=== PATIENT | male | born 1990 | race Caucasian/White ===

== ENCOUNTER 2022-05-01 08:30 | Emergency (ER) | payer MEDICAID, SELFPAY ==
[2022-05-01] VITALS (32 sets, daily range): BP systolic 130–167; BP diastolic 89–108; PULSE 84–99; RESP 18; TEMP 37.2; O2SAT 93–97; BMI 32.5
--- NOTE | 2022-05-01 09:22 | CRLHL7_ITS ---
For Patients: As a result of the Century Cures Act, medical imaging exams and procedure reports are released immediately into your electronic medical record. You may view this report before your referring provider. If you have questions, please contact your health care provider. INDICATION: Chest tightness. TECHNIQUE: Chest 2 views. COMPARISON: None. FINDINGS: No focal consolidation, pleural effusion, or pneumothorax. Normal heart size and pulmonary vascularity. The bones are unremarkable. IMPRESSION: No acute cardiopulmonary findings. Dictated by Johanna Young MD @ 05/01/2022 10:11:26 AM (Electronically Signed)
--- NOTE | 2022-05-01 09:22 | ED.GENADULT ---
HPI - General Adult General Chief complaint: Chest Pain Stated complaint: Chest tightness History of Present Illness HPI narrative: This 32-year-old male comes in reporting some chest tightness over the past couple days. He states that he had a subjective fever a couple days ago. He states that he felt warm but did not measure his temperature. He did take a COVID test which was negative. He does not have any report of cough for upper respiratory symptoms. He is otherwise in good health. He did not report any nausea, vomiting, lightheadedness, shortness of breath, or diaphoresis. He has good exercise tolerance. He does not have any cardiac risk factors. Related Data Home Medications Medication Instructions Recorded Confirmed No Known Home Medications 05/01/22 05/01/22 Allergies Allergy/AdvReac Type Severity Reaction Status Date / Time No Known Drug Allergies Allergy Verified 05/01/22 08:57 Review of Systems Status of ROS: Reports: 10 or more systems reviewed and unremarkable except as noted in History and below Narrative: Constitutional: No fevers, no weight gain or loss. Eyes: No discharge. No vision changes. HENT: No congestion, no sore throat, no ear pain. Cardiovascular: No palpitations. He reports some tightness across his chest but does not characterize it specifically as pain. Respiratory: No shortness of breath, no wheezes, no cough. Gastrointestinal: No abdominal pain, no vomiting, no diarrhea. Genitourinary: No dysuria, no hematuria. Musculoskeletal: Normal range of motion. Skin: No rashes, no pruritis. Neurological: No dizziness, weakness, sensory change, speech change. Endo/Heme/Allergies: No bruising or bleeding. No polydipsia. Pysch: no suicidality, no anxiety, no insomnia. All other systems reviewed and are negative. PFSH PFS Social History Smoking Status: Unknown if ever smoked How often do you have a drink containing alcohol: 2-4 times a month How often do you have six or more drinks on one occasion: Monthly AUDIT-C Alcohol total score: 4 Non-prescribed substance use: denies use service: No Exam Narrative: Exam Narrative: Constitutional: Well-developed, well-nourished, no acute distress. HEENT: Normocephalic, atraumatic. Neck: Normal range of motion. Nontender. Supple. Heart: Regular. No murmurs. Normal rate. Intact distal pulses. Lungs: Clear to auscultation. No wheezes, rhonchi, or rales. Abdomen: Normal bowel sounds. Nontender. No rebound tenderness. Genitalia: Deferred. Back: No midline tenderness. Normal range of motion. Extremities: Normal range of motion. No injury. Skin: Intact. No rash. Warm. No erythema or pallor. Neurologic: No altered sensation. No weakness. Alert and oriented. Psychiatric: No suicidality. No anxiety or depression. No insomnia. Nursing notes and vitals signs are reviewed. Const: Vital Signs, click to edit/add: Vital Signs - 24 hr 05/01/22 08:52 05/01/22 10:50 05/01/22 11:00 Temperature 98.9 F Pulse Rate 87 84 Pulse Rate [Right Pulse Oximeter] 91 Respiratory Rate 18 Blood Pressure Blood Pressure [Ri ght Upper Arm] 147/97 H Pulse Oximetry 97 96 97 Oxygen Delivery Me thod Room Air 05/01/22 11:01 05/01/22 11:30 05/01/22 12:00 Temperature Pulse Rate 99 92 94 Pulse Rate [Right Pulse Oximeter] Respiratory Rate Blood Pressure 139/97 H Blood Pressure [Ri ght Upper Arm] Pulse Oximetry 96 97 97 Oxygen Delivery Me thod 05/01/22 12:02 05/01/22 12:30 05/01/22 12:32 Temperature Pulse Rate 91 89 90 Pulse Rate [Right Pulse Oximeter] Respiratory Rate Blood Pressure 167/106 H 148/92 H Blood Pressure [Ri ght Upper Arm] Pulse Oximetry 97 95 96 Oxygen Delivery Me thod 05/01/22 12:34 05/01/22 13:00 05/01/22 13:02 Temperature Pulse Rate 94 86 88 Pulse Rate [Right Pulse Oximeter] Respiratory Rate Blood Pressure 145/97 H Blood Pressure [Ri ght Upper Arm] Pulse Oximetry 94 95 95 Oxygen Delivery Me thod 05/01/22 13:03 05/01/22 13:30 05/01/22 13:31 Temperature Pulse Rate 85 97 95 Pulse Rate [Right Pulse Oximeter] Respiratory Rate Blood Pressure 142/90 H Blood Pressure [Ri ght Upper Arm] Pulse Oximetry 96 96 96 Oxygen Delivery Me thod 05/01/22 14:00 05/01/22 14:02 05/01/22 14:03 Temperature Pulse Rate 84 85 88 Pulse Rate [Right Pulse Oximeter] Respiratory Rate Blood Pressure 133/93 H Blood Pressure [Ri ght Upper Arm] Pulse Oximetry 96 97 97 Oxygen Delivery Me thod 05/01/22 14:30 05/01/22 14:32 05/01/22 15:00 Temperature Pulse Rate 91 95 84 Pulse Rate [Right Pulse Oximeter] Respiratory Rate Blood Pressure 142/105 H Blood Pressure [Ri ght Upper Arm] Pulse Oximetry 94 97 95 Oxygen Delivery Me thod 05/01/22 15:01 05/01/22 15:30 05/01/22 15:31 Temperature Pulse Rate 86 91 93 Pulse Rate [Right Pulse Oximeter] Respiratory Rate Blood Pressure 137/90 H 147/108 H Blood Pressure [Ri ght Upper Arm] Pulse Oximetry 95 96 95 Oxygen Delivery Me thod 05/01/22 16:01 05/01/22 16:02 05/01/22 16:30 Temperature Pulse Rate 88 91 87 Pulse Rate [Right Pulse Oximeter] Respiratory Rate Blood Pressure 130/89 Blood Pressure [Ri ght Upper Arm] Pulse Oximetry 95 97 97 Oxygen Delivery Me thod 05/01/22 16:32 05/01/22 17:00 05/01/22 17:05 Temperature Pulse Rate 85 90 93 Pulse Rate [Right Pulse Oximeter] Respiratory Rate Blood Pressure 151/102 H Blood Pressure [Ri ght Upper Arm] Pulse Oximetry 94 95 93 Oxygen Delivery Me thod 05/01/22 17:06 05/01/22 17:30 Temperature Pulse Rate 92 91 Pulse Rate [Right Pulse Oximeter] Respiratory Rate Blood Pressure Blood Pressure [Ri ght Upper Arm] Pulse Oximetry 95 94 Oxygen Delivery Me thod Course Vital Signs Vital signs: Initial Vital Signs Temperature 98.9 F 05/01/22 08:52 Temperature Source Temporal Artery Scan 05/01/22 08:52 Pulse Rate 91 05/01/22 08:52 Pulse Rhythm 05/01/22 08:52 Respiratory Rate 18 05/01/22 08:52 Blood Pressure 147/97 H 05/01/22 08:52 Blood Pressure Mean 113 05/01/22 08:52 Blood Pressure Position Sitting 05/01/22 08:52 Pulse Oximetry 97 05/01/22 08:52 Oxygen Delivery Method 05/01/22 08:52 Vital Signs Temperature 98.9 F 05/01/22 08:52 Pulse Rate 91 05/01/22 08:52 Respiratory Rate 18 05/01/22 08:52 Blood Pressure 147/97 H 05/01/22 08:52 Pulse Oximetry 97 05/01/22 08:52 Oxygen Delivery Method 05/01/22 08:52 Temperature 98.9 F 05/01/22 08:52 Pulse Rate 91 05/01/22 17:30 Respiratory Rate 18 05/01/22 08:52 Blood Pressure 151/102 H 05/01/22 16:32 Pulse Oximetry 94 05/01/22 17:30 Oxygen Delivery Method 05/01/22 08:52 Medical Decision Making MDM Narrative Medical decision making narrative: This patient comes in reporting some chest tightness and felt like he had a fever a few days ago. He did also have some diaphoresis. Currently he is not having any symptoms. EKG shows normal sinus rhythm without any ST or T-wave abnormalities. I did check x-ray of his chest which returns normal. Additionally his labs are acquired and these returned normal except for a notable elevation in troponin point of care. A lab troponin I was then ordered which returns at 3.05. A few hours later a repeat troponin returned at 3.5. This patient does not have any cardiac risk factors and does not use any street drugs or other medications. He normally has good exercise tolerance. There is suspicion for a acute coronary syndrome, myocarditis, endocarditis, or pericarditis. He did receive 4 baby aspirin. I did add labs including sed rate and C reactive protein. This sed rate returns normal at 13 and this C reactive protein is elevated a bit at 1.8. His white count is in normal range. I spoke with the facepiece line supervisor expansion joint finisher at [facility], Dr. Sharp, who was also perplexed along with me regarding this elevated troponin finding. The patient was able to get an echocardiogram here in this returned with no notable findings of abnormality. Dr. Sharp also reviewed these images. The patient was started on heparin ACS protocol. He continues to have no symptoms and is maintaining normal vital signs. Arrangements are made for transfer to [facility] after many hours of waiting here in the emergency department. Dr. Preston is the accepting physician there. Time spent in critical care of this patient was 45 minutes. Lab Data Labs: Lab Results 05/01/22 05/01/22 05/01/22 Range/Units 09:34 09:34 09:34 WBC 4.54 (4.50-11.00) K/uL RBC 6.07 H (4.30-5.90) m/uL Hgb 15.4 (13.5-17.5) gm/dL Hct 47.4 (37.0-53.0) % MCV 78 L (80-100) fL MCH 25 L (26-34) pg MCHC 33 (32-36) gm/dL RDW Coeff of Amilcar 13.3 (11.5-15.5) % Plt Count 146 (140-440) K/uL Neut % (Auto) 45.4 (42.0-72.0) % Lymph % (Auto) 31.5 (20-44) % [place] % (Auto) 21.1 H (0.0-11.0) % Eos % (Auto) 1.1 (0.0-7.0) % Baso % (Auto) 0.7 (0.0-3.0) % Neut # (Auto) 2.06 (1.7-7.0) K/uL Lymph # (Auto) 1.43 (0.90-2.90) K/uL [place] # (Auto) 1.00 H (0.00-0.90) K/UL Eos # (Auto) 0.05 (0.00-0.50) K/uL Baso # (Auto) 0.03 (0.00-0.30) K/uL Abs Immat Gran (auto) 0.01 (0.00-0.30) K/uL Imm/Tot Granulo (auto) 0.2 % ESR (2-15) mm/hr INR (0.91-1.10) APTT (23-33) Seconds Sodium 141 (135-149) mmol/L Potassium 3.9 (3.6-5.1) mmol/L Chloride 104 (96-114) mmol/L Carbon Dioxide 28 (20-32) mmol/L BUN 12 (5-24) mg/dL Creatinine 0.8 (0.5-1.5) mg/dL Estimated Creat Clear 142.81 Estimated GFR 119 ml/min Glucose 99 (60-115) mg/dL Calcium 9.5 (8.4-10.6) mg/dL Total Bilirubin (0.1-1.5) mg/dL Direct Bilirubin (0.0-0.5) mg/dL AST (12-35) U/L ALT (4-50) U/L Alkaline Phosphatase (40-150) U/L Troponin I (0.01-0.04) ng/mL C-Reactive Protein (0.5-1.0) mg/dL Total Protein (6.0-8.3) g/dL Albumin (3.3-5.0) g/dL SARS-CoV-2 (PCR) (Negative) Influenza Type A (PCR) (Negative) Influenza Type B (PCR) (Negative) RSV (PCR) (Negative) POC Troponin I 2.47 H (0.01-0.04) ng/ml 05/01/22 05/01/22 05/01/22 Range/Units 09:34 09:34 09:34 WBC (4.50-11.00) K/uL RBC (4.30-5.90) m/uL Hgb (13.5-17.5) gm/dL Hct (37.0-53.0) % MCV (80-100) fL MCH (26-34) pg MCHC (32-36) gm/dL RDW Coeff of Amilcar (11.5-15.5) % Plt Count (140-440) K/uL Neut % (Auto) (42.0-72.0) % Lymph % (Auto) (20-44) % [place] % (Auto) (0.0-11.0) % Eos % (Auto) (0.0-7.0) % Baso % (Auto) (0.0-3.0) % Neut # (Auto) (1.7-7.0) K/uL Lymph # (Auto) (0.90-2.90) K/uL [place] # (Auto) (0.00-0.90) K/UL Eos # (Auto) (0.00-0.50) K/uL Baso # (Auto) (0.00-0.30) K/uL Abs Immat Gran (auto) (0.00-0.30) K/uL Imm/Tot Granulo (auto) % ESR 13 (2-15) mm/hr INR (0.91-1.10) APTT (23-33) Seconds Sodium (135-149) mmol/L Potassium (3.6-5.1) mmol/L Chloride (96-114) mmol/L Carbon Dioxide (20-32) mmol/L BUN (5-24) mg/dL Creatinine (0.5-1.5) mg/dL Estimated Creat Clear Estimated GFR ml/min Glucose (60-115) mg/dL Calcium (8.4-10.6) mg/dL Total Bilirubin 0.6 (0.1-1.5) mg/dL Direct Bilirubin 0.2 (0.0-0.5) mg/dL AST 54 H (12-35) U/L ALT 52 H (4-50) U/L Alkaline Phosphatase 72 (40-150) U/L Troponin I 3.05 H* (0.01-0.04) ng/mL C-Reactive Protein 1.8 H (0.5-1.0) mg/dL Total Protein 7.6 (6.0-8.3) g/dL Albumin 4.8 (3.3-5.0) g/dL SARS-CoV-2 (PCR) (Negative) Influenza Type A (PCR) (Negative) Influenza Type B (PCR) (Negative) RSV (PCR) (Negative) POC Troponin I (0.01-0.04) ng/ml 05/01/22 05/01/22 05/01/22 Range/Units 11:40 12:00 12:19 WBC (4.50-11.00) K/uL RBC (4.30-5.90) m/uL Hgb (13.5-17.5) gm/dL Hct (37.0-53.0) % MCV (80-100) fL MCH (26-34) pg MCHC (32-36) gm/dL RDW Coeff of Amilcar (11.5-15.5) % Plt Count (140-440) K/uL Neut % (Auto) (42.0-72.0) % Lymph % (Auto) (20-44) % [place] % (Auto) (0.0-11.0) % Eos % (Auto) (0.0-7.0) % Baso % (Auto) (0.0-3.0) % Neut # (Auto) (1.7-7.0) K/uL Lymph # (Auto) (0.90-2.90) K/uL [place] # (Auto) (0.00-0.90) K/UL Eos # (Auto) (0.00-0.50) K/uL Baso # (Auto) (0.00-0.30) K/uL Abs Immat Gran (auto) (0.00-0.30) K/uL Imm/Tot Granulo (auto) % ESR (2-15) mm/hr INR 0.92 (0.91-1.10) APTT 26 (23-33) Seconds Sodium (135-149) mmol/L Potassium (3.6-5.1) mmol/L Chloride (96-114) mmol/L Carbon Dioxide (20-32) mmol/L BUN (5-24) mg/dL Creatinine (0.5-1.5) mg/dL Estimated Creat Clear Estimated GFR ml/min Glucose (60-115) mg/dL Calcium (8.4-10.6) mg/dL Total Bilirubin (0.1-1.5) mg/dL Direct Bilirubin (0.0-0.5) mg/dL AST (12-35) U/L ALT (4-50) U/L Alkaline Phosphatase (40-150) U/L Troponin I 3.51 H* (0.01-0.04) ng/mL C-Reactive Protein (0.5-1.0) mg/dL Total Protein (6.0-8.3) g/dL Albumin (3.3-5.0) g/dL SARS-CoV-2 (PCR) Negative SARS-CoV-2 (Negative) Influenza Type A (PCR) Negative PCR FLU A (Negative) Influenza Type B (PCR) Negative PCR FLU B (Negative) RSV (PCR) Negative PCR RSV (Negative) POC Troponin I (0.01-0.04) ng/ml 05/01/22 Range/Units 16:19 WBC (4.50-11.00) K/uL RBC (4.30-5.90) m/uL Hgb (13.5-17.5) gm/dL Hct (37.0-53.0) % MCV (80-100) fL MCH (26-34) pg MCHC (32-36) gm/dL RDW Coeff of Amilcar (11.5-15.5) % Plt Count (140-440) K/uL Neut % (Auto) (42.0-72.0) % Lymph % (Auto) (20-44) % [place] % (Auto) (0.0-11.0) % Eos % (Auto) (0.0-7.0) % Baso % (Auto) (0.0-3.0) % Neut # (Auto) (1.7-7.0) K/uL Lymph # (Auto) (0.90-2.90) K/uL [place] # (Auto) (0.00-0.90) K/UL Eos # (Auto) (0.00-0.50) K/uL Baso # (Auto) (0.00-0.30) K/uL Abs Immat Gran (auto) (0.00-0.30) K/uL Imm/Tot Granulo (auto) % ESR (2-15) mm/hr INR (0.91-1.10) APTT (23-33) Seconds Sodium (135-149) mmol/L Potassium (3.6-5.1) mmol/L Chloride (96-114) mmol/L Carbon Dioxide (20-32) mmol/L BUN (5-24) mg/dL Creatinine (0.5-1.5) mg/dL Estimated Creat Clear Estimated GFR ml/min Glucose (60-115) mg/dL Calcium (8.4-10.6) mg/dL Total Bilirubin (0.1-1.5) mg/dL Direct Bilirubin (0.0-0.5) mg/dL AST (12-35) U/L ALT (4-50) U/L Alkaline Phosphatase (40-150) U/L Troponin I 2.85 H* (0.01-0.04) ng/mL C-Reactive Protein (0.5-1.0) mg/dL Total Protein (6.0-8.3) g/dL Albumin (3.3-5.0) g/dL SARS-CoV-2 (PCR) (Negative) Influenza Type A (PCR) (Negative) Influenza Type B (PCR) (Negative) RSV (PCR) (Negative) POC Troponin I (0.01-0.04) ng/ml Imaging Data Chest x-ray: Radiologist's impression: No acute cardiopulmonary findings. ECG Data Attestation: I personally reviewed and interpreted this ECG as follows: Interpretation: Normal sinus rhythm. Rate is 85 beats per minute. There are no ST or T-wave abnormalities. Critical Care Time Critical Care Time Critical Care Time: Yes Attestation: The patient required my highest level preparedness to intervene emergently and I personally spent this critical care time directly and personally managing the patient. This critical care time included: Obtaining a history; Examining the patient; Pulse oximetry; Ordering and reviewing of studies; Arranging urgent treatment with development of a management plan; Evaluation of patients response to treatment; Frequent reassessment discussions with other providers. This critical care time was performed to assess and manage the high probability of imminent life-threatening deterioration that could result in multiorgan failure. It was exclusive of separate billable procedures and treating other patients and teaching time. Total Critical Care Time in Minutes: 45 Discharge Plan Discharge Clinical Impression: Atypical chest pain, Non-ST elevated myocardial infarction (non-STEMI), Elevated troponin Patient Disposition: [facility] Condition: Unchanged Prescriptions: No Action No Known Home Medications Follow Up/Referrals: Provider,Not a Local [Primary Care Provider] - Stand Alone Forms: obopay Info Instructions
[2022-05-01 09:53] LABS: Troponin, Point-of-Care* 2.47 ng/ml (0.01-0.04)
[2022-05-01 09:54] LABS: Basophils Absolute Auto 0.03 K/uL (0.00-0.30); Basophils Percent Auto 0.7 % (0.0-3.0); Eosinophils Absolute Auto 0.05 K/uL (0.00-0.50); Eosinophils Percent Auto 1.1 % (0.0-7.0); Hematocrit 47.4 % (37.0-53.0); Hemoglobin* 15.4 gm/dL (13.5-17.5); Immature Granulocytes Abs Auto 0.01 K/uL (0.00-0.30); Immature Granulocytes Pct Auto 0.2 %; Lymphocytes Absolute Auto 1.43 K/uL (0.90-2.90); Lymphocytes Percent Auto 31.5 % (20-44); Mean Corpuscular HGB Conc 33 gm/dL (32-36); Mean Corpuscular Hemoglobin 25 pg (26-34); Mean Corpuscular Volume 78 fL (80-100); Monocytes Percent Auto 21.1 % (0.0-11.0); Neutrophils Absolute Auto 2.06 K/uL (1.7-7.0); Neutrophils Percent Auto 45.4 % (42.0-72.0); Platelet Count* 146 K/uL (140-440); RDW Coefficient of Variation % 13.3 % (11.5-15.5); Red Blood Count 6.07 m/uL (4.30-5.90); White Blood Count* 4.54 K/uL (4.50-11.00)
--- NOTE | 2022-05-01 09:55 | ED.NURSE ---
Informed Dr. Wood of the trop result POC
[2022-05-01 09:57] LABS: Slide Review Reflex No
[2022-05-01 10:13] LABS: Chloride* 104 mmol/L (96-114)
[2022-05-01 10:14] LABS: Potassium* 3.9 mmol/L (3.6-5.1); Sodium* 141 mmol/L (135-149)
[2022-05-01 10:16] LABS: Creatinine* 0.8 mg/dL (0.5-1.5); Est. Creatinine Clearance* 142.81; Estimated Glomerular Filt Rate 119 ml/min
[2022-05-01 10:17] LABS: Blood Urea Nitrogen* 12 mg/dL (5-24); Calcium* 9.5 mg/dL (8.4-10.6); Carbon Dioxide* 28 mmol/L (20-32); Glucose* 99 mg/dL (60-115)
[2022-05-01] MEDS: ASPIRIN 81 MG TAB.CHEW 324 MG PO (10:18)
[2022-05-01 10:27] LABS: Albumin* 4.8 g/dL (3.3-5.0)
[2022-05-01 10:30] LABS: Bilirubin Direct* 0.2 mg/dL (0.0-0.5); Bilirubin Total* 0.6 mg/dL (0.1-1.5)
[2022-05-01 10:31] LABS: Alanine Aminotransferase* 52 U/L (4-50); Alkaline Phosphatase* 72 U/L (40-150); Aspartate Amino Transferase* 54 U/L (12-35); Total Protein* 7.6 g/dL (6.0-8.3)
[2022-05-01 10:33] LABS: C Reactive Protein* 1.8 mg/dL (0.5-1.0)
[2022-05-01 10:50] LABS: Troponin I* 3.05 ng/mL (0.01-0.04)
[2022-05-01 11:08] LABS: Erythrocyte SedimentationRate* 13 mm/hr (2-15)
[2022-05-01] MEDS: HEPARIN 25,000 UNIT/500 ML BAG 20 UNIT IV (11:51)
[2022-05-01] MEDS: HEPARIN 5,000 UNIT/0.5 ML INJ 4000 UNIT IVP (11:52)
[2022-05-01] MEDS: 0.9 % SODIUM CHLORIDE 500 ML 500 ML IV (12:09)
[2022-05-01 12:17] LABS: INR 0.92 (0.91-1.10); Partial Thromboplastin Time* 26 Seconds (23-33); Prothrombin Time 12.9 Seconds
[2022-05-01 12:53] LABS: PCR FLU A Negative PCR FLU A (Negative); PCR FLU B Negative PCR FLU B (Negative); PCR RSV Negative PCR RSV (Negative)
[2022-05-01 12:54] LABS: SARS PCR* Negative SARS-CoV-2 (Negative)
[2022-05-01 13:16] LABS: Troponin I* 3.51 ng/mL (0.01-0.04)
[2022-05-01 17:07] LABS: Troponin I* 2.85 ng/mL (0.01-0.04)
[2022-05-01 19:28] LABS: INR 0.97 (0.91-1.10); Prothrombin Time 13.5 Seconds
== END 2022-05-01 19:05 | disposition home or self-care (01) ==
PROVIDERS: Emergency Provider Emergency Medicine Emergency Medical Services
DX: R07.9 Chest pain, unspecified (principal); I21.4 Non-ST elevation (NSTEMI) myocardial infarction
CPT/HCPCS: 36415; 71046; 80048; 80076; 84484; 85025; 85610; 85651; 85730; 86140; 87502; 87634; 87635; 93005; 93306; 99285; 99291; A9270; J1644; J7120

== ENCOUNTER 2022-05-01 18:48 | Outpatient (CLI) | payer MEDICAID, SELFPAY | END 2022-05-01 18:49 | disposition home or self-care (01) | LOC: AMB 05-12 09:29 | PROVIDERS: Visit Provider Emergency Medicine Emergency Medical Services | DX: R07.89 Other chest pain (principal) | CPT/HCPCS: A0425; A0427 ==

== ENCOUNTER 2022-08-10 12:08 | Emergency (ER) | payer MEDICAID, SELFPAY ==
[2022-08-10] VITALS (10 sets, daily range): BP systolic 132–179; BP diastolic 87–102; PULSE 81–101; RESP 16; TEMP 37.1; O2SAT 94–98; BMI 31.2
--- NOTE | 2022-08-10 12:41 | CRLHL7_ITS ---
For Patients: As a result of the Century Cures Act, medical imaging exams and procedure reports are released immediately into your electronic medical record. You may view this report before your referring provider. If you have questions, please contact your health care provider. INDICATION: Abdominal pain TECHNIQUE: Axial images were obtained from the diaphragm to the pubic symphysis. Reformats were obtained in the coronal and sagittal plane. IV Contrast: 112 cc Isovue 370 Oral Contrast: None COMPARISON: None. FINDINGS: Lower chest: Unremarkable. Liver: Unremarkable. Normal in size and attenuation. No masses. Gallbladder and bile ducts: Unremarkable. No stones or inflammation. No biliary dilatation. Spleen: Unremarkable. Normal in size without mass. Pancreas: Unremarkable. No mass or inflammation. Adrenal glands: Unremarkable. No nodules. 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 No hydronephrosis. Vasculature: Unremarkable. GI tract: No dilated loops of large or small intestine. Moderate amount of stool within the colon. Appendix unremarkable. Pelvis: Unremarkable. Bones: Degenerative disc disease L4-5 and L5-S1. IMPRESSION: Unremarkable abdomen and pelvis CT. No findings to explain the patient`s abdominal pain. Please note that all CT scans at this facility use dose modulation, iterative reconstruction, and/or weight-based dosing when appropriate to reduce radiation dose to as low as reasonably achievable. Dictated by Nicolas Reyez MD @ 08/10/2022 2:44:18 PM (Electronically Signed)
--- NOTE | 2022-08-10 12:53 | ED.ABDPAIN ---
HPI - Abdominal Pain General Chief Complaint: Abdominal Pain Stated Complaint: stomach pain Time Seen by Provider: 08/10/22 12:13 History of Present Illness HPI narrative: Pt is a 32 year old gentleman who had an episode of myocarditis 4 months ago who presents with midline abd pain. Pt awoke this morning feeling fine but the pain which is sharp and localized just above his umbilicus came on shortly after. Pt has had no change in his appetite or stools. No nausea or vomiting. Pt has no GERD symptoms or chest pain. Pt has had no similar symptoms previously. Pt has been feeling well recently. Pt has had no further cardiac symptoms and actually has stopped all of his medications including his antihypertensives. Pt has not taken any medication at home. Related Data Home Medications Medication Instructions Recorded Confirmed No Known Home Medications 05/01/22 05/01/22 Allergies Allergy/AdvReac Type Severity Reaction Status Date / Time No Known Drug Allergies Allergy Verified 08/10/22 14:00 Review of Systems Status of ROS Reports: 10 or more systems reviewed and unremarkable except as noted in History and below [facility] Medical History (Updated 08/10/22 @ 15:05 by Christo Haider MD) Myocarditis Social History Smoking Status: Never smoker Do you use any of these nicotine containing products: None Second hand tobacco smoke exposure: No How often do you have a drink containing alcohol: 2-4 times a month How many standard drinks containing alcohol do you have on a typical day: 1 or 2 How often do you have six or more drinks on one occasion: Monthly AUDIT-C Alcohol total score: 4 Non-prescribed substance use: marijuana (any form) Non-prescribed substance use details: Occasional cannabis use for anxiety, last use 5 days ago service: No Exam Narrative: Exam Narrative: EXAM GENERAL: Patient appears comfortable and well. EYES: No scleral icterus. ENT: Tympanic membranes and oropharynx normal. THYROID: no thyroid nodules or thyromegaly. LYMPH: No supraclavicular or cervical lymphadenopathy. SKIN: Visible skin seen during exam normal or with benign process only. EXT: No dependent lower extremity pedal edema. HEART: Regular rate and rhythm with no murmurs, rubs, or gallops. LUNGS: Clear to auscultation bilaterally with no crackles or wheezes. ABD: Soft, non tender, non distended. PSYCH: Good eye contact, speech is not pressured. Const: Vital Signs, click to edit/add: Vital Signs - 24 hr 08/10/22 12:17 08/10/22 13:23 08/10/22 13:30 Temperature 98.8 F Pulse Rate 96 86 Pulse Rate [Left P ulse Oximeter] 96 Respiratory Rate 16 Blood Pressure Blood Pressure [Le ft Upper Arm] 179/102 H Pulse Oximetry 98 97 96 Oxygen Delivery Me thod Room Air 08/10/22 13:31 08/10/22 14:06 08/10/22 14:30 Temperature Pulse Rate 99 101 H 84 Pulse Rate [Left P ulse Oximeter] Respiratory Rate Blood Pressure 132/87 Blood Pressure [Le ft Upper Arm] Pulse Oximetry 97 94 94 Oxygen Delivery Me thod 08/10/22 14:31 Temperature Pulse Rate 95 Pulse Rate [Left P ulse Oximeter] Respiratory Rate Blood Pressure 146/87 H Blood Pressure [Le ft Upper Arm] Pulse Oximetry 96 Oxygen Delivery Me thod Course Course Hospital Course: CT abd and pelvis, CBC, Amylase, EKG, CMP, Lipase, Troponin ordered. Pt pain free now. Reevaluation(s) Reevaluation #1: Pt remains pain free. Labs and x ray reassuring. Vital Signs Vital signs: Initial Vital Signs Temperature 98.8 F 08/10/22 12:17 Temperature Source Temporal Artery Scan 08/10/22 12:17 Pulse Rate 96 08/10/22 12:17 Pulse Rhythm 08/10/22 12:17 Pulse Strength 3+ Normal 08/10/22 12:17 Respiratory Rate 16 08/10/22 12:17 Blood Pressure 179/102 H 08/10/22 12:17 Blood Pressure Mean 127 08/10/22 12:17 Blood Pressure Position Sitting 08/10/22 12:17 Pulse Oximetry 98 08/10/22 12:17 Oxygen Delivery Method 08/10/22 12:17 Vital Signs Temperature 98.8 F 08/10/22 12:17 Pulse Rate 96 08/10/22 12:17 Respiratory Rate 16 08/10/22 12:17 Blood Pressure 179/102 H 08/10/22 12:17 Pulse Oximetry 98 08/10/22 12:17 Oxygen Delivery Method 08/10/22 12:17 Temperature 98.8 F 08/10/22 12:17 Pulse Rate 95 08/10/22 14:31 Respiratory Rate 16 08/10/22 12:17 Blood Pressure 146/87 H 08/10/22 14:31 Pulse Oximetry 96 08/10/22 14:31 Oxygen Delivery Method 08/10/22 12:17 MDM - Abdominal Pain MDM Narrative Medical decision making narrative: Pt presents with severe abd pain which has now resolved. Pt has microcytosis but no other findings on lab or CT. Pt hypertensive and will need follow up. Pt will follow his blood pressure for 2 weeka dn see me back in the office at that time. Differential Diagnosis Differential diagnosis: Likely abdominal pain, acute appendicitis, calculus of kidney, constipation, diverticulitis, gastroenteritis, pancreatitis and small bowel obstruction Lab Data Labs: Lab Results 08/10/22 08/10/22 08/10/22 Range/Units 12:49 12:58 12:58 WBC 4.51 (4.50-11.00) K/uL RBC 6.04 H (4.30-5.90) m/uL Hgb 15.2 (13.5-17.5) gm/dL Hct 46.7 (37.0-53.0) % MCV 77 L (80-100) fL MCH 25 L (26-34) pg MCHC 33 (32-36) gm/dL RDW Coeff of Amilcar 13.6 (11.5-15.5) % Plt Count 265 (140-440) K/uL Neut % (Auto) 65.7 (42.0-72.0) % Lymph % (Auto) 20.4 (20-44) % Petroleum % (Auto) 12.4 H (0.0-11.0) % Eos % (Auto) 1.3 (0.0-7.0) % Baso % (Auto) 0.2 (0.0-3.0) % Neut # (Auto) 2.96 (1.7-7.0) K/uL Lymph # (Auto) 0.92 (0.90-2.90) K/uL Petroleum # (Auto) 0.60 (0.00-0.90) K/UL Eos # (Auto) 0.06 (0.00-0.50) K/uL Baso # (Auto) 0.01 (0.00-0.30) K/uL Sodium 138 (135-149) mmol/L Potassium 3.9 (3.6-5.1) mmol/L Chloride 104 (96-114) mmol/L Carbon Dioxide 28 (20-32) mmol/L BUN 13 (5-24) mg/dL Creatinine 0.8 (0.5-1.5) mg/dL Estimated Creat Clear 142.81 Estimated GFR 119 ml/min Glucose 122 H (60-115) mg/dL Calcium 9.7 (8.4-10.6) mg/dL Total Bilirubin 1.0 (0.1-1.5) mg/dL AST 35 (12-35) U/L ALT 44 (4-50) U/L Alkaline Phosphatase 69 (40-150) U/L Troponin I < 0.01 L (0.01-0.04) ng/mL Total Protein 8.8 H (6.0-8.3) g/dL Albumin 5.1 H (3.3-5.0) g/dL Amylase 72 (18-89) U/L Lipase 46 (23-300) U/L Urine Color Yellow (Yellow) Urine Appearance Clear (Clear) Urine pH 5.5 (5.0-8.5) Ur Specific Fletcher <= 1.005 (1.000-1.030) Urine Protein Negative (Negative) Urine Glucose (UA) Negative (Negative) Urine Ketones Negative (Negative) Urine Blood Trace-lysed A (Negative) Urine Nitrite Negative (Negative) Urine Bilirubin Negative (Negative) Urine Urobilinogen 0.2 (0.2-1.0) Ur Leukocyte Esterase Negative (Negative) Urine RBC 0-2 (0-2) Urine WBC 0-2 (0-5) Ur Squamous Epith Cells None (None-Few) Urine Bacteria None (None) Discharge Plan Discharge Clinical Impression: Abdominal pain Patient Disposition: Home, Self-Care Condition: Stable Instructions: Abdominal Pain (ED) Additional Instructions: Advance diet as tolerated Follow blood pressure twice per week Follow up with Dr. Haider in 2 weeks. Activity Level: No Restrictions Discharge Diet: Regular Prescriptions: No Action No Known Home Medications Follow Up/Referrals: Provider,Not a Local [Primary Care Provider] - Stand Alone Forms: [employer] Info Instructions
[2022-08-10 13:05] LABS: Basophils Absolute Auto 0.01 K/uL (0.00-0.30); Basophils Percent Auto 0.2 % (0.0-3.0); Eosinophils Absolute Auto 0.06 K/uL (0.00-0.50); Eosinophils Percent Auto 1.3 % (0.0-7.0); Hematocrit 46.7 % (37.0-53.0); Hemoglobin* 15.2 gm/dL (13.5-17.5); Lymphocytes Absolute Auto 0.92 K/uL (0.90-2.90); Lymphocytes Percent Auto 20.4 % (20-44); Mean Corpuscular HGB Conc 33 gm/dL (32-36); Mean Corpuscular Hemoglobin 25 pg (26-34); Mean Corpuscular Volume 77 fL (80-100); Monocytes Percent Auto 12.4 % (0.0-11.0); Neutrophils Absolute Auto 2.96 K/uL (1.7-7.0); Neutrophils Percent Auto 65.7 % (42.0-72.0); Platelet Count* 265 K/uL (140-440); RDW Coefficient of Variation % 13.6 % (11.5-15.5); Red Blood Count 6.04 m/uL (4.30-5.90); White Blood Count* 4.51 K/uL (4.50-11.00)
[2022-08-10 13:06] LABS: Appearance Urine Clear (Clear); Bilirubin Urine Negative (Negative); Blood Urine Trace-lysed (Negative); Color Urine Yellow (Yellow); Glucose Urine Negative (Negative); Ketones Urine Negative (Negative); Leukocyte Esterase Urine Negative (Negative); Nitrite Urine Negative (Negative); Protein Urine Negative (Negative); Specific Gravity Urine <= 1.005 (1.000-1.030); Urobilinogen Urine 0.2 (0.2-1.0); pH Urine 5.5 (5.0-8.5)
[2022-08-10 13:06] LABS: Slide Review Reflex No
[2022-08-10 13:17] LABS: Albumin* 5.1 g/dL (3.3-5.0); Chloride* 104 mmol/L (96-114)
[2022-08-10 13:18] LABS: Potassium* 3.9 mmol/L (3.6-5.1); Sodium* 138 mmol/L (135-149)
[2022-08-10 13:20] LABS: RBC Urine 0-2 (0-2); WBC Urine 0-2 (0-5)
[2022-08-10 13:20] LABS: Amylase* 72 U/L (18-89); Carbon Dioxide* 28 mmol/L (20-32); Creatinine* 0.8 mg/dL (0.5-1.5); Est. Creatinine Clearance* 142.81; Estimated Glomerular Filt Rate 119 ml/min
[2022-08-10 13:21] LABS: Alanine Aminotransferase* 44 U/L (4-50); Alkaline Phosphatase* 69 U/L (40-150); Aspartate Amino Transferase* 35 U/L (12-35); Blood Urea Nitrogen* 13 mg/dL (5-24); Calcium* 9.7 mg/dL (8.4-10.6); Glucose* 122 mg/dL (60-115); Lipase* 46 U/L (23-300); Total Protein* 8.8 g/dL (6.0-8.3)
[2022-08-10 13:35] LABS: Troponin I* < 0.01 ng/mL (0.01-0.04)
== END 2022-08-10 15:15 | disposition home or self-care (01) ==
PROVIDERS: Emergency Provider Internal Medicine
DX: R10.9 Unspecified abdominal pain (principal)
CPT/HCPCS: 36415; 74177; 80053; 81003; 81015; 82150; 83690; 84484; 85025; 93005; 99283; 99284; Q9967

== ENCOUNTER 2022-08-28 17:07 | Emergency (ER) | payer MEDICAID, SELFPAY ==
[2022-08-28 17:38] VITALS: BP 192/125; PULSE 90; RESP 18; TEMP 37.2; O2SAT 98; BMI 30.7
--- NOTE | 2022-08-28 18:11 | CRLHL7_ITS ---
For Patients: As a result of the Century Cures Act, medical imaging exams and procedure reports are released immediately into your electronic medical record. You may view this report before your referring provider. If you have questions, please contact your health care provider. INDICATION: Nocturnal diaphoresis. TECHNIQUE: Chest 2 views. COMPARISON: CT 06/05/2022. FINDINGS: Cardiovascular and mediastinum: Heart size and vasculature are normal in caliber and appearance. Lungs and pleural spaces: Lungs are clear. No sign of infiltrate or mass. No sign of pleural effusion. No pneumothorax. Bones and soft tissues: No significant findings. IMPRESSION: No acute cardiopulmonary abnormalities. Dictated by Dominic Felipe MD @ 08/28/2022 8:35:30 PM (Electronically Signed)
--- NOTE | 2022-08-28 18:12 | ED_ITS ---
HPI - General Adult General Chief complaint: Fever Stated complaint: Itching in chest, nightsweats Time Seen by Provider: 08/28/22 17:59 History of Present Illness HPI narrative: This 32-year-old male comes in reporting drenching night sweats for 2 or 3 nights starting about for 5 days ago. He states that he did not measure his temperature but may have had a fever he states that he felt chilled when going to bed and then took Tylenol and later was diaphoretic. He does not report any shortness of breath or chest pain. He does have a history of myocarditis 4 months ago and states that he has resumed normal activity. Related Data Home Medications Medication Instructions Recorded Confirmed No Known Home Medications 05/01/22 05/01/22 Allergies Allergy/AdvReac Type Severity Reaction Status Date / Time No Known Drug Allergies Allergy Verified 08/10/22 14:00 Review of Systems Status of ROS: Reports: 10 or more systems reviewed and unremarkable except as noted in History and below Narrative: Constitutional: No weight gain or loss. Chills and diaphoresis as described above. Eyes: No discharge. No vision changes. HENT: No congestion, no sore throat, no ear pain. Cardiovascular: No chest pain, no palpitations. Respiratory: No shortness of breath, no wheezes, no cough. Gastrointestinal: No abdominal pain, no vomiting, no diarrhea. Genitourinary: No dysuria, no hematuria. Musculoskeletal: Normal range of motion. Skin: No rashes, no pruritis. Neurological: No dizziness, weakness, sensory change, speech change. Endo/Heme/Allergies: No bruising or bleeding. No polydipsia. Pysch: no suicidality, no anxiety, no insomnia. All other systems reviewed and are negative. [facility] Medical History (Updated 08/28/22 @ 19:59 by Abdelrahman Marinelli MD) Myocarditis ?I51.4 - Myocarditis, unspecified (ICD-10) Social History Smoking Status: Former smoker Do you use any of these nicotine containing products: None Second hand tobacco smoke exposure: No How often do you have a drink containing alcohol: monthly or less How many standard drinks containing alcohol do you have on a typical day: 1 or 2 How often do you have six or more drinks on one occasion: Monthly AUDIT-C Alcohol total score: 3 Non-prescribed substance use: marijuana (any form) Non-prescribed substance use details: Former cannabis use for anxiety service: No Exam Narrative: Exam Narrative: Constitutional: Well-developed, well-nourished, no acute distress. HEENT: Normocephalic, atraumatic. Neck: Normal range of motion. Nontender. Supple. Heart: Regular. No murmurs. Normal rate. Intact distal pulses. Lungs: Clear to auscultation. No chest discomfort. No wheezes, rhonchi, or rales. Abdomen: Normal bowel sounds. Nontender. No rebound tenderness. Genitalia: Deferred. Back: No midline tenderness. Normal range of motion. Extremities: Normal range of motion. No injury. Skin: Intact. No rash. Warm. No erythema or pallor. Neurologic: No altered sensation. No weakness. Alert and oriented. Psychiatric: No suicidality. No anxiety or depression. No insomnia. Nursing notes and vitals signs are reviewed. Const: Vital Signs, click to edit/add: Vital Signs - 24 hr 08/28/22 17:38 08/28/22 19:30 Temperature 98.9 F 98.4 F Pulse Rate [Pulse Oximeter] 90 82 Respiratory Rate 18 18 Blood Pressure [Ri ght Upper Arm] 192/125 H 134/99 H Pulse Oximetry 98 98 Oxygen Delivery Me thod Room Air Room Air Course Vital Signs Vital signs: Initial Vital Signs Temperature 98.9 F 08/28/22 17:38 Temperature Source Temporal Artery Scan 08/28/22 17:38 Pulse Rate 90 08/28/22 17:38 Pulse Rhythm Regular 08/28/22 17:38 Respiratory Rate 18 08/28/22 17:38 Blood Pressure 192/125 H 08/28/22 17:38 Blood Pressure Mean 147 08/28/22 17:38 Blood Pressure Position Sitting 08/28/22 17:38 Pulse Oximetry 98 08/28/22 17:38 Oxygen Delivery Method Room Air 08/28/22 17:38 Vital Signs Temperature 98.9 F 08/28/22 17:38 Pulse Rate 90 08/28/22 17:38 Respiratory Rate 18 08/28/22 17:38 Blood Pressure 192/125 H 08/28/22 17:38 Pulse Oximetry 98 08/28/22 17:38 Oxygen Delivery Method Room Air 08/28/22 17:38 Temperature 98.4 F 08/28/22 19:30 Pulse Rate 82 08/28/22 19:30 Respiratory Rate 18 08/28/22 19:30 Blood Pressure 134/99 H 08/28/22 19:30 Pulse Oximetry 98 08/28/22 19:30 Oxygen Delivery Method Room Air 08/28/22 19:30 Medical Decision Making MDM Narrative Medical decision making narrative: This patient comes in with concern about 2 or 3 nights of diaphoresis after having chills. He has some increased anxiety about symptoms like this because he did have a myocarditis about 4 months ago which she has recovered nicely from. He is requesting that we recheck chest x-ray and labs. These were done in all of these returned with normal results. This was very reassuring to the patient. At the time of discharge the patient appears safe for outpatient [facility]. The treatment plan is reviewed along with written and verbal return precautions. Reasons to return and the importance of close followup were also reviewed. Lab Data Labs: Lab Results 08/28/22 08/28/22 Range/Units 18:10 18:24 WBC 4.97 (4.50-11.00) K/uL RBC 5.64 (4.30-5.90) m/uL Hgb 14.1 (13.5-17.5) gm/dL Hct 44.1 (37.0-53.0) % MCV 78 L (80-100) fL MCH 25 L (26-34) pg MCHC 32 (32-36) gm/dL RDW Coeff of Amilcar 13.2 (11.5-15.5) % Plt Count 270 (140-440) K/uL Neut % (Auto) 67.8 (42.0-72.0) % Lymph % (Auto) 20.3 (20-44) % Avery % (Auto) 9.9 (0.0-11.0) % Eos % (Auto) 1.6 (0.0-7.0) % Baso % (Auto) 0.2 (0.0-3.0) % Neut # (Auto) 3.37 (1.7-7.0) K/uL Lymph # (Auto) 1.01 (0.90-2.90) K/uL Avery # (Auto) 0.50 (0.00-0.90) K/UL Eos # (Auto) 0.08 (0.00-0.50) K/uL Baso # (Auto) 0.01 (0.00-0.30) K/uL ESR 14 (2-15) mm/hr Sodium 140 (135-149) mmol/L Potassium 4.3 (3.6-5.1) mmol/L Chloride 103 (96-114) mmol/L Carbon Dioxide 30 (20-32) mmol/L BUN 9 (5-24) mg/dL Creatinine 0.8 (0.5-1.5) mg/dL Estimated Creat Clear 142.81 Estimated GFR 119 ml/min Glucose 95 (60-115) mg/dL Calcium 9.4 (8.4-10.6) mg/dL Total Bilirubin 0.5 (0.1-1.5) mg/dL Direct Bilirubin 0.2 (0.0-0.5) mg/dL AST 27 (12-35) U/L ALT 28 (4-50) U/L Alkaline Phosphatase 64 (40-150) U/L C-Reactive Protein 0.7 (0.5-1.0) mg/dL Total Protein 8.1 (6.0-8.3) g/dL Albumin 4.6 (3.3-5.0) g/dL Lipase 43 (23-300) U/L TSH 1.120 (0.270-4.20) uIU/mL SARS-CoV-2 (PCR) Negative SARS-CoV-2 (Negative) Influenza Type A (PCR) Negative PCR FLU A (Negative) Influenza Type B (PCR) Negative PCR FLU B (Negative) RSV (PCR) Negative PCR RSV (Negative) Discharge Plan Discharge Clinical Impression: Diaphoresis Patient Disposition: Home, Self-Care Condition: Stable Additional Instructions: Continue current plans. Use [id number] medicines as needed and directed. Follow up with MD or return if worsening. Prescriptions: No Action No Known Home Medications Follow Up/Referrals: Provider,Not a Local [Referring] - Stand Alone Forms: [employer] Info Instructions
[2022-08-28 18:29] LABS: Basophils Absolute Auto 0.01 K/uL (0.00-0.30); Basophils Percent Auto 0.2 % (0.0-3.0); Eosinophils Absolute Auto 0.08 K/uL (0.00-0.50); Eosinophils Percent Auto 1.6 % (0.0-7.0); Hematocrit 44.1 % (37.0-53.0); Hemoglobin* 14.1 gm/dL (13.5-17.5); Immature Granulocytes Abs Auto 0.01 K/uL (0.00-0.30); Immature Granulocytes Pct Auto 0.2 %; Lymphocytes Absolute Auto 1.01 K/uL (0.90-2.90); Lymphocytes Percent Auto 20.3 % (20-44); Mean Corpuscular HGB Conc 32 gm/dL (32-36); Mean Corpuscular Hemoglobin 25 pg (26-34); Mean Corpuscular Volume 78 fL (80-100); Monocytes Percent Auto 9.9 % (0.0-11.0); Neutrophils Absolute Auto 3.37 K/uL (1.7-7.0); Neutrophils Percent Auto 67.8 % (42.0-72.0); Platelet Count* 270 K/uL (140-440); RDW Coefficient of Variation % 13.2 % (11.5-15.5); Red Blood Count 5.64 m/uL (4.30-5.90); White Blood Count* 4.97 K/uL (4.50-11.00)
[2022-08-28 18:30] LABS: Slide Review Reflex No
[2022-08-28 18:48] LABS: Chloride* 103 mmol/L (96-114); Potassium* 4.3 mmol/L (3.6-5.1); Sodium* 140 mmol/L (135-149)
[2022-08-28 18:49] LABS: Albumin* 4.6 g/dL (3.3-5.0)
[2022-08-28 18:51] LABS: Blood Urea Nitrogen* 9 mg/dL (5-24); Carbon Dioxide* 30 mmol/L (20-32); Creatinine* 0.8 mg/dL (0.5-1.5); Est. Creatinine Clearance* 142.81; Estimated Glomerular Filt Rate 119 ml/min
[2022-08-28 18:52] LABS: Alkaline Phosphatase* 64 U/L (40-150); Aspartate Amino Transferase* 27 U/L (12-35); Bilirubin Direct* 0.2 mg/dL (0.0-0.5); Bilirubin Total* 0.5 mg/dL (0.1-1.5); Calcium* 9.4 mg/dL (8.4-10.6); Glucose* 95 mg/dL (60-115); Total Protein* 8.1 g/dL (6.0-8.3)
[2022-08-28 18:53] LABS: Alanine Aminotransferase* 28 U/L (4-50); Lipase* 43 U/L (23-300)
[2022-08-28 18:54] LABS: C Reactive Protein* 0.7 mg/dL (0.5-1.0)
[2022-08-28 19:06] LABS: PCR FLU A Negative PCR FLU A (Negative); PCR FLU B Negative PCR FLU B (Negative); PCR RSV Negative PCR RSV (Negative)
[2022-08-28 19:13] LABS: SARS PCR* Negative SARS-CoV-2 (Negative)
[2022-08-28 19:19] LABS: Erythrocyte SedimentationRate* 14 mm/hr (2-15)
[2022-08-28 19:30] VITALS: BP 134/99; PULSE 82; RESP 18; TEMP 36.9; O2SAT 98
== END 2022-08-28 20:16 | disposition home or self-care (01) ==
PROVIDERS: Emergency Provider Emergency Medicine Emergency Medical Services; PCP Internal Medicine
DX: R61 Generalized hyperhidrosis (principal)
CPT/HCPCS: 36415; 71046; 80048; 80076; 83690; 84443; 85025; 85651; 86140; 87502; 87634; 87635; 99283; 99284

== ENCOUNTER 2023-02-24 12:08 | Emergency (ER) | payer MEDICAID, SELFPAY ==
[2023-02-24] VITALS (9 sets, daily range): BP systolic 119–150; BP diastolic 86–100; PULSE 77–92; RESP 18; TEMP 37; O2SAT 93–96; BMI 33.2
--- NOTE | 2023-02-24 12:40 | CRLHL7_ITS ---
For Patients: As a result of the Cures Act, medical imaging exams and procedure reports are released immediately into your electronic medical record. You may view this report before your referring provider. If you have questions, please contact your health care provider. INDICATION: Cough. COMPARISON: Chest x-ray dated 28 August 2022. FINDINGS: PA lateral chest x-rays show a normal cardiac silhouette. The lungs show no focal pulmonary opacities. Sharp pleural margins. No pneumothorax. IMPRESSION: No evidence of acute pulmonary abnormalities. Dictated by Kartik Marie MD @ 02/24/2023 1:48:52 PM Dictated by: Kartik Marie MD @ 02/24/2023 13:49:02 (Electronically Signed)
[2023-02-24 12:55] LABS: Basophils Absolute Auto 0.02 K/uL (0.00-0.30); Basophils Percent Auto 0.2 % (0.0-3.0); Eosinophils Absolute Auto 0.07 K/uL (0.00-0.50); Eosinophils Percent Auto 0.8 % (0.0-7.0); Hematocrit 48.2 % (37.0-53.0); Hemoglobin* 15.5 gm/dL (13.5-17.5); Immature Granulocytes Abs Auto 0.01 K/uL (0.00-0.30); Immature Granulocytes Pct Auto 0.1 %; Lymphocytes Percent Auto 17.4 % (20-44); Mean Corpuscular HGB Conc 32 gm/dL (32-36); Mean Corpuscular Hemoglobin 25 pg (26-34); Mean Corpuscular Volume 78 fL (80-100); Monocytes Percent Auto 8.2 % (0.0-11.0); Neutrophils Percent Auto 73.3 % (42.0-72.0); Platelet Count* 262 K/uL (140-440); RDW Coefficient of Variation % 13.1 % (11.5-15.5); Red Blood Count 6.21 m/uL (4.30-5.90)
[2023-02-24 13:13] LABS: Slide Review Reflex No
[2023-02-24 13:17] LABS: Chloride* 102 mmol/L (96-114); D Dimer Quantitative* < 0.27 ug/ml (0.00-0.50)
[2023-02-24 13:18] LABS: Potassium* 3.8 mmol/L (3.6-5.1); Sodium* 140 mmol/L (135-149)
[2023-02-24 13:20] LABS: Creatinine* 0.8 mg/dL (0.5-1.5); Est. Creatinine Clearance* 141.46; Estimated Glomerular Filt Rate 118 ml/min
[2023-02-24 13:21] LABS: Alanine Aminotransferase* 33 U/L (4-50); Alkaline Phosphatase* 77 U/L (40-150); Anion Gap 10 mEq/L (7-15); Aspartate Amino Transferase* 33 U/L (12-35); Bilirubin Direct* 0.1 mg/dL (0.0-0.5); Bilirubin Total* 1.1 mg/dL (0.1-1.5); Blood Urea Nitrogen* 12 mg/dL (5-24); Calcium* 9.9 mg/dL (8.4-10.6); Carbon Dioxide* 28 mmol/L (20-32); Glucose* 96 mg/dL (60-115); Lipase* 38 U/L (23-300); Total Protein* 8.8 g/dL (6.0-8.3)
--- NOTE | 2023-02-24 13:23 | ED_ITS ---
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 He had hypertension diagnosed at that time as well and was initially on antihypertensive medications, had discontinued them for some. And then after being seen here earlier this year was restarted, but he says he feels like a ?[place] and so he never went back to clinic and discontinued the medications. He has been seen several times here and apparently a couple of times by cardiology for chest symptoms since his diagnosis of myocarditis. He admits that he worries quite a bit about his health, he says he has a family who he has to support. He does have a longstanding history of anxiety, he says he has started working 10-12 hour days so that he is too tired to think about anything else by the time he stops working, otherwise he says he feels too anxious to really sit still. He works construction, has a very physical job and has been able to continue that work without any difficulties with chest pain, shortness of breath, etcetera. He notes today that he had an episode of unusual sensation in his chest which started on the right and then migrated to the left, he says it was not painful exactly, it just felt sort of like ?a nerve thing. This has now resolved. He also has had some lower abdominal discomfort on and off which has been migratory, he thinks this may be due to lifting heavy things at work. He has had a normal appetite, no fevers, no urinary symptoms, no vomiting or diarrhea, constipation, or other complaints. Related Data Previous Rx's Medication Instructions Recorded lisinopril 20 1 tab PO QDAY #90 tabs 11/07/22 mg-hydrochlorothiazide 12.5 mg tablet Allergies Allergy/AdvReac Type Severity Reaction Status Date / Time No Known Drug Allergies Allergy Verified 02/24/23 12:21 Review of Systems Status of ROS: Reports: 10 or more systems reviewed and unremarkable except as noted in History and below [facility] Medical History Hypertension ?I10 - Essential (primary) hypertension (ICD-10) Myocarditis ?I51.4 - Myocarditis, unspecified (ICD-10) Social History Smoking Status: Former smoker Do you use any of these nicotine containing products: None Second hand tobacco smoke exposure: No How often do you have a drink containing alcohol: monthly or less How many standard drinks containing alcohol do you have on a typical day: 1 or 2 How often do you have six or more drinks on one occasion: Monthly AUDIT-C Alcohol total score: 3 Non-prescribed substance use: marijuana (any form) Non-prescribed substance use details: Former cannabis use for anxiety Little interest or pleasure in doing things: not at all Feeling down, depressed, or hopeless: not at all service: No Exam Narrative: Exam Narrative: Vital signs as noted above. In general, an alert, well-appearing patient. Looks comfortable, breathing easily. Head: Normocephalic, atraumatic. Eyes: Pupils are equal reactive. Extraocular movements are full. Conjunctivae are normal. ENT: Mucous membranes are moist. Throat is normal. Neck: Supple without lymphadenopathy. Heart: Regular rate and rhythm. No murmur or rub. Lungs: Clear bilaterally. No increased work of breathing, crackles or wheezes. Abdomen: Soft and nontender. No organomegaly. Extremities: Well perfused. No edema. No calf tenderness. Pulses intact. Neurologic: Patient is alert and oriented to person and place. Speech is fluent. Face is symmetric. Moves all extremities equally. Affect: Normal, a little anxious. Skin: Warm and dry. Well perfused. Const: Vital Signs, click to edit/add: Vital Signs - 24 hr 02/24/23 12:21 02/24/23 13:54 02/24/23 14:00 Temperature 98.6 F Pulse Rate 82 77 Pulse Rate [Pulse Oximeter] 92 Respiratory Rate 18 Blood Pressure Blood Pressure [Ri ght Upper Arm] 150/100 H Pulse Oximetry 95 94 95 Oxygen Delivery Me thod Room Air 02/24/23 14:01 02/24/23 14:15 02/24/23 14:26 Temperature Pulse Rate 81 80 92 Pulse Rate [Pulse Oximeter] Respiratory Rate Blood Pressure 119/86 137/98 H Blood Pressure [Ri ght Upper Arm] Pulse Oximetry 95 95 96 Oxygen Delivery Me thod 02/24/23 14:27 02/24/23 14:30 02/24/23 14:31 Temperature Pulse Rate 89 87 84 Pulse Rate [Pulse Oximeter] Respiratory Rate Blood Pressure 126/86 Blood Pressure [Ri ght Upper Arm] Pulse Oximetry 96 96 93 Oxygen Delivery Me thod Documenting provider has reviewed patient's vital signs: yes Course Course ED Course: Patient had an EKG on arrival which showed a normal sinus rhythm, ventricular rate of 96 beats per minute. No acute ST segment changes, T-waves are unremarkable. I reviewed his records, he has had several visits for evaluation of somewhat similar nonspecific symptoms. I do think anxiety is contributing to some of this for him, and he does not disagree. Will evaluate for any medical issues such as pneumonia, pneumothorax, PE, acute coronary syndrome, pericarditis etcetera, but assuming that workup is negative I have discussed with him that I think he needs better blood pressure control and consideration of management of anxiety. Work appears reassuring. Chest x-ray by my review is negative, radiology read is negative. Blood pressure came down 126/86 without intervention. Labs are normal including a troponin is 0, negative CRP, lipase of 38, D-dimer less than 0.27. Discussed with him that I do not find any evidence of significant problem today with his heart or lungs. He does acknowledge significant anxiety and has panic attacks, he says that today was 1 of those days that he felt panicky and too anxious to stay home. I prescribing some Ativan to use on an as-needed basis, discussed that this is not a long-term or daily solution, and he may benefit from medication management of his anxiety. I have encouraged him to talk with his primary doctor about this. With regard to his high blood pressure, I would like him to just check this at home a couple times a week for a couple of weeks and then see how those numbers look, discuss further with primary care. Based on his blood pressure right now I am not certain that he needs to be medically managed and he would like to avoid medication if possible. Return any time for severe worsening symptoms. Vital Signs Vital signs: Initial Vital Signs Temperature 98.6 F 02/24/23 12:21 Temperature Source Temporal Artery Scan 02/24/23 12:21 Pulse Rate 92 02/24/23 12:21 Respiratory Rate 18 02/24/23 12:21 Blood Pressure 150/100 H 02/24/23 12:21 Blood Pressure Mean 116 H 02/24/23 12:21 Blood Pressure Position Semi-Fowlers 02/24/23 12:21 Pulse Oximetry 95 02/24/23 12:21 Oxygen Delivery Method Room Air 02/24/23 12:21 Vital Signs Temperature 98.6 F 02/24/23 12:21 Pulse Rate 92 02/24/23 12:21 Respiratory Rate 18 02/24/23 12:21 Blood Pressure 150/100 H 02/24/23 12:21 Pulse Oximetry 95 02/24/23 12:21 Oxygen Delivery Method Room Air 02/24/23 12:21 Temperature 98.6 F 02/24/23 12:21 Pulse Rate 84 02/24/23 14:31 Respiratory Rate 18 02/24/23 12:21 Blood Pressure 126/86 02/24/23 14:31 Pulse Oximetry 93 02/24/23 14:31 Oxygen Delivery Method Room Air 02/24/23 12:21 Medical Decision Making Lab Data Labs: Lab Results 02/24/23 02/24/23 Range/Units 12:40 12:45 WBC 8.40 (4.50-11.00) K/uL RBC 6.21 H (4.30-5.90) m/uL Hgb 15.5 (13.5-17.5) gm/dL Hct 48.2 (37.0-53.0) % MCV 78 L (80-100) fL MCH 25 L (26-34) pg MCHC 32 (32-36) gm/dL RDW Coeff of Amilcar 13.1 (11.5-15.5) % Plt Count 262 (140-440) K/uL Neut % (Auto) 73.3 H (42.0-72.0) % Lymph % (Auto) 17.4 L (20-44) % [place] % (Auto) 8.2 (0.0-11.0) % Eos % (Auto) 0.8 (0.0-7.0) % Baso % (Auto) 0.2 (0.0-3.0) % Neut # (Auto) 6.20 (1.7-7.0) K/uL Lymph # (Auto) 1.50 (0.90-2.90) K/uL [place] # (Auto) 0.70 (0.00-0.90) K/UL Eos # (Auto) 0.07 (0.00-0.50) K/uL Baso # (Auto) 0.02 (0.00-0.30) K/uL Abs Immat Gran (auto) 0.01 (0.00-0.30) K/uL Imm/Tot Granulo (auto) 0.1 % D-Dimer Quant (PE/DVT) < 0.27 (0.00-0.50) ug/ml Sodium 140 (135-149) mmol/L Potassium 3.8 (3.6-5.1) mmol/L Chloride 102 (96-114) mmol/L Carbon Dioxide 28 (20-32) mmol/L Anion Gap 10 (7-15) mEq/L BUN 12 (5-24) mg/dL Creatinine 0.8 (0.5-1.5) mg/dL Estimated Creat Clear 141.46 Estimated GFR 118 ml/min Glucose 96 (60-115) mg/dL Calcium 9.9 (8.4-10.6) mg/dL Total Bilirubin 1.1 (0.1-1.5) mg/dL Direct Bilirubin 0.1 (0.0-0.5) mg/dL AST 33 (12-35) U/L ALT 33 (4-50) U/L Alkaline Phosphatase 77 (40-150) U/L C-Reactive Protein < 0.5 L (0.5-1.0) mg/dL Total Protein 8.8 H (6.0-8.3) g/dL Albumin 5.0 (3.3-5.0) g/dL Lipase 38 (23-300) U/L Urine Color Yellow (Yellow) Urine Appearance Clear (Clear) Urine pH 7.0 (5.0-8.5) Ur Specific [place] 1.015 (1.000-1.030) Urine Protein Negative (Negative) Urine Glucose (UA) Negative (Negative) Urine Ketones Negative (Negative) Urine Blood Negative (Negative) Urine Nitrite Negative (Negative) Urine Bilirubin Negative (Negative) Urine Urobilinogen 0.2 (0.2-1.0) Ur Leukocyte Esterase Negative (Negative) Urine RBC 0-2 (0-2) Urine WBC 0-2 (0-5) Ur Squamous Epith Cells None (None-Few) Urine Bacteria None (None) POC Troponin I 0.00 L (0.01-0.04) ng/ml Discharge Plan Discharge Clinical Impression: Anxiety, Chest pain Patient Disposition: Home, Self-Care Condition: Improved Instructions: Chest Pain (DC), Anxiety (ED) Additional Instructions: Your test here today are all very reassuring, no evidence of problems with your heart or lungs. I do think you might benefit from better management of your anxiety, and this is something that you could discussed with Dr. Haider. I would also recommend that you check your blood pressure 2 to 3 times a week for the next couple of weeks, and then follow-up for discussion of whether blood pressure control is needed at this time. Return to the ER for severe symptoms, vomiting, fever, other acute worsening. Ativan if needed for episodes of significant anxiety/panic. Prescriptions: No Action lisinopril-hydrochlorothiazide 20-12.5 mg tablet 1 tab PO QDAY Qty: 90 3RF Hold Instructions: Patient discontinued Follow Up/Referrals: Christo Haider MD [Primary Care Provider] - Stand Alone Forms: [employer] Info Instructions
[2023-02-24 13:30] LABS: C Reactive Protein* < 0.5 mg/dL (0.5-1.0)
[2023-02-24 13:47] LABS: Appearance Urine Clear (Clear); Bilirubin Urine Negative (Negative); Blood Urine Negative (Negative); Color Urine Yellow (Yellow); Glucose Urine Negative (Negative); Ketones Urine Negative (Negative); Leukocyte Esterase Urine Negative (Negative); Nitrite Urine Negative (Negative); Protein Urine Negative (Negative); Specific Gravity Urine 1.015 (1.000-1.030); Urobilinogen Urine 0.2 (0.2-1.0)
[2023-02-24 14:05] LABS: RBC Urine 0-2 (0-2); WBC Urine 0-2 (0-5)
== END 2023-02-24 14:45 | disposition home or self-care (01) ==
PROVIDERS: Emergency Provider Emergency Medicine; PCP Internal Medicine
DX: R07.9 Chest pain, unspecified (principal); F41.9 Anxiety disorder, unspecified
CPT/HCPCS: 36415; 71046; 80048; 80076; 81001; 81015; 83690; 84484; 85025; 85379; 86140; 93005; 94761; 99284

== ENCOUNTER 2023-07-25 17:11 | Emergency (ER) | payer MEDICAID, SELFPAY ==
[2023-07-25 17:26] VITALS: BP 145/83; PULSE 98; RESP 18; TEMP 37.6; O2SAT 95; BMI 31.2
--- NOTE | 2023-07-25 17:38 | ED_ITS ---
HPI - General Adult General Time Seen by Provider: 17:38 Date Seen: 07/25/23 Chief complaint: Cough Stated complaint: Cough with mucus Time Seen by Provider: 07/25/23 17:38 Source: patient and RN notes reviewed Mode of arrival: ambulatory Limitations: no limitations History of Present Illness HPI narrative: Patient is a very pleasant 33-year-old gentleman with a history of myocarditis in April of 2022 who comes to the emergency room with 11 days of cough. Patient notes the onset of a cough 11 days ago associated with a mild runny nose. He has not had a fever. He has had ongoing a greenish yellowish production. He notes that at night the cough seems to be worsened he is having a hard time sleeping. He has noticed some wheezing. Any denies any chest pain at this time. There has been no history of lower extremity swelling. No history of PE in the past. He has had some sweats at night. Patient has continued to be active every day. Again, no chest pain. Related Data Previous Rx's Medication Instructions Recorded alprazolam 0.5 mg tablet (Xanax) 0.5 mg PO BID PRN anxiety #30 tabs 03/28/23 metoprolol tartrate 25 mg tablet 25 mg PO BID Hypertension #60 tabs 03/28/23 Allergies Allergy/AdvReac Type Severity Reaction Status Date / Time No Known Drug Allergies Allergy Verified 03/28/23 08:11 Review of Systems Status of ROS: Reports: 10 or more systems reviewed and unremarkable except as noted in History and below Const: Reports: chills, fatigue and night sweats; Denies: fever Eyes: Denies: change in vision ENMT: Reports: nasal discharge; Denies: throat pain, difficulty swallowing or ear pain Cardio: Denies: chest pain, palpitations or swelling of feet/ankles Resp: Reports: cough and wheezing GI: Reports: vomiting (Near post-tussive vomiting with coughing.); Denies: abdominal pain, nausea or difficulty swallowing Musculo: Denies: back pain Neuro: Denies: headache Endo: Reports: fatigue Allergy/Immuno: Reports: wheezing [facility] Medical History Hypertension ?I10 - Essential (primary) hypertension (ICD-10) Myocarditis ?I51.4 - Myocarditis, unspecified (ICD-10) Social History Smoking Status: Former smoker Do you use any of these nicotine containing products: None Second hand tobacco smoke exposure: No How often do you have a drink containing alcohol: monthly or less How many standard drinks containing alcohol do you have on a typical day: 1 or 2 How often do you have six or more drinks on one occasion: Monthly AUDIT-C Alcohol total score: 3 Non-prescribed substance use: marijuana (any form) Non-prescribed substance use details: Former cannabis use for anxiety Little interest or pleasure in doing things: not at all Feeling down, depressed, or hopeless: not at all service: No Exam Narrative: Exam Narrative: Alert and oriented. No acute distress. Oral cavity with moist mucous membranes. Face symmetrical. No obvious swelling. Posterior oropharynx without significant erythema. Neck is supple no lymphadenopathy. Heart with regular rate and rhythm. Lungs are with some main airway sounds. Wheezing noted in the upper aspects of the lung left greater than right. Moving all extremities. No evidence of lower extremity edema noted. Const: Vital Signs, click to edit/add: Vital Signs - 24 hr 07/25/23 17:26 Temperature 99.6 F Pulse Rate [Pulse Oximeter] 98 Respiratory Rate 18 Blood Pressure [Ri ght Upper Arm] 145/83 H Pulse Oximetry 95 Oxygen Delivery Me thod Room Air Documenting provider has reviewed patient's vital signs: yes Course Course ED Course: Differential diagnosis includes but is not limited to viral URI, pneumonia, COVID, influenza, bronchitis. At this time patient does not have fever, has a appropriate O2 sats no evidence of tachycardia or lower extremity edema. Would not expect this to be PE. Without any chest pain do not think this is a pericarditis or myocarditis. More likely URI but given 11 days of symptoms will obtain chest x-ray. Also suggest the triple swab even though he is 11 days into the illness. Reevaluation(s) Reevaluation #1: Chest x-ray reassuring with no evidence of infiltrate. Triple swab is negative. Vital Signs Vital signs: Initial Vital Signs Temperature 99.6 F 07/25/23 17:26 Temperature Source Temporal Artery Scan 07/25/23 17:26 Pulse Rate 98 07/25/23 17:26 Pulse Rhythm Regular 07/25/23 17:26 Respiratory Rate 18 07/25/23 17:26 Blood Pressure 145/83 H 07/25/23 17:26 Blood Pressure Mean 103 07/25/23 17:26 Blood Pressure Position Sitting 07/25/23 17:26 Pulse Oximetry 95 07/25/23 17:26 Oxygen Delivery Method Room Air 07/25/23 17:26 Vital Signs Temperature 99.6 F 07/25/23 17:26 Pulse Rate 98 07/25/23 17:26 Respiratory Rate 18 07/25/23 17:26 Blood Pressure 145/83 H 07/25/23 17:26 Pulse Oximetry 95 07/25/23 17:26 Oxygen Delivery Method Room Air 07/25/23 17:26 Temperature 99.6 F 07/25/23 17:26 Pulse Rate 98 07/25/23 17:26 Respiratory Rate 18 07/25/23 17:26 Blood Pressure 145/83 H 07/25/23 17:26 Pulse Oximetry 95 07/25/23 17:26 Oxygen Delivery Method Room Air 07/25/23 17:26 Medical Decision Making MDM Narrative Medical decision making narrative: 1. URI-patient has ongoing cough but no evidence of pneumonia on x-ray. No evidence of hypoxia at this time. Recommend steroids prednisone 20 mg p.o. b.i.d. x5 days is he is experiencing wheezing. I also recommend men the use of an albuterol inhaler especially before bedtime to open the airways. This should help. If he hello ever has worsening symptoms including the onset of fever or worsening breathing he may need an antibiotic but at this point it is only been 11 days and again chest x-ray is reassuring. 2. History of myocarditis-patient has no pain at this time. No fever, unusual murmur or additional heart sounds. Heart sounds are regular and I do not feel the need for further cardiac workup at this time unless he has changing symptoms. I recommend returning for chest pain, irregular heartbeat and as needed. 3. Disposition-home at this time. Return/seek medical attention for worsening symptoms, especially chest pain, worsening shortness of breath, in creased cough and fever. He voices understanding. Medical Records Medical records reviewed: Yes I reviewed the patient's medical records Lab Data Lab results reviewed: Yes I reviewed the patient's lab results Labs: Lab Results 07/25/23 Range/Units 18:11 SARS-CoV-2 (PCR) Negative SARS-CoV-2 (Negative) Influenza Type A (PCR) Negative PCR FLU A (Negative) Influenza Type B (PCR) Negative PCR FLU B (Negative) RSV (PCR) Negative PCR RSV (Negative) Imaging Data Chest x-ray: Attestation: I have reviewed the pertinent imaging results. My impression: No obvious infiltrate. Radiologist's impression: Cardiovascular and mediastinum: Heart size and vasculature are normal in caliber and appearance. Lungs and pleural spaces: Lungs are clear. No sign of infiltrate or mass. No sign of pleural effusion. No pneumothorax. Bones and soft tissues: No significant findings. IMPRESSION: No acute findings and no significant changes from the prior exam. Discharge Plan Discharge Clinical Impression: URI (upper respiratory infection) Qualifiers: URI type: unspecified viral URI Qualified Code(s): J06.9 - Acute upper respiratory infection, unspecified Patient Disposition: Home, Self-Care Condition: Unchanged Instructions: Acute Bronchitis (ED) Additional Instructions: I suggest using inhaler before bedtime to open airways. At 1st this will may make you cough more but this will allow you to get your congestion up. Will also place you on prednisone for anti inflammation as you are wheezing. Recommend follow-up if you are not improving in the next 72 hours. If your actually worsening with high fever return to the emergency room for further evaluation. Activity Level: No Restrictions Discharge Diet: Regular Prescriptions: No Action alprazolam [Xanax] 0.5 mg tablet 0.5 mg PO BID PRN (Reason: anxiety) Qty: 30 0RF metoprolol tartrate 25 mg tablet 25 mg PO BID Qty: 60 3RF Follow Up/Referrals: Christo Haider MD [Primary Care Provider] - Stand Alone Forms: [employer] Info Instructions
--- NOTE | 2023-07-25 18:06 | XR_ITS ---
Final Report Patient: DEREK LOREDO Facility:?[facility] Patient ID:?[id number] Site Patient ID:?[id number]. Site :?[id number] Study:?XRay Chest 1V PORTABLE-07/25/2023 6:23:03 PM Ordering Physician:YAIR Final Report: INDICATION: Cough, wheeze. TECHNIQUE: Chest 1 views. COMPARISON: August 28, 2022. FINDINGS: Cardiovascular and mediastinum: Heart size and vasculature are normal in caliber and appearance. Lungs and pleural spaces: Lungs are clear. No sign of infiltrate or mass. No sign of pleural effusion. No pneumothorax. Bones and soft tissues: No significant findings. IMPRESSION: No acute findings and no significant changes from the prior exam. Dictated by Mike Tay MD @ 07/25/2023 6:33:47 PM (Electronic Signature)
--- OUTSIDE RECORDS SUMMARY | 2023-07-25 18:12 | XMS_ITS | Clinical Summary ---
Author Name Unknown Organization [facility] Address [place], [place] [address] Care Team Providers Care Dressmaker Helper Name Role Phone Pcp, No Primary Care Provider Unavailabl e Allergies No known active allergies Medications Medication Sig Dispensed Refills Start Date End Date Status losartan (COZAAR) 25 mg tabletIndications:NST VAN (non-ST elevated myocardial infarction) (HC) Take 1 Tablet (25 mg) by mouth once daily. 90 Tablet 3 05/02/2022 Active durable medical equipment (DME)Indications:Elev ated blood pressure reading Blood pressure cuff and machine. 1 Each 0 05/05/2022 Active metoprolol succinate (TOPROL XL) 25 mg Sustained-Release tabletIndications:Mamta st pain, unspecified type Take 1 Tablet (25 mg) by mouth once daily. 30 Tablet 0 05/22/2022 Active sertraline (ZOLOFT) 50 mg tabletIndications:Gen eralized anxiety disorder Take 1 Tablet (50 mg) by mouth every morning. 30 Tablet 1 05/26/2022 Active hydrOXYzine HCL (ATARAX) 25 mg tabletIndications:Gen eralized anxiety disorder Take 1 Tablet (25 mg) by mouth every 6 hours if needed for Anxiety or Itching. 25 Tablet 1 05/26/2022 Active Active Problems Problem Noted Date Diagnosed Date Nodule of lower lobe of right lung 06/06/2022 NSTEMI (non-ST elevated myocardial infarction) 1 07/01/2021 Overview: ANW 05/01/22. Troponin elevation in association with respiratory illness. Clean CT coronary angiogram. Thought secondary to myocarditis. Elevated blood pressure reading 05/01/2022 Family History Medical History Relation Name Comments Heart Disease No Family History Social History Tobacco Use Types Packs/Day Years Used Date Smoking Tobacco: Former Cigarettes Q uit: 2015 Smokeless Tobacco: Never Tobacco Cessation:Counseling Given: Not Answered Alcohol Use Standard Drinks/Week Comments Not Currently 0 (1 standard drink = 0.6 oz pur e alcohol) PHQ-2 Answer Date Recorded PHQ-2 TOTAL SCORE 0 05/26/2022 Social Connections Answer Date Recorded Frequency of Communication with Friends and Fami ly Not on file 05/05/2022 Sex and Gender Information Value Date Recorded Sex Assigned at Not on file Gender Identity Not on file Sexual Orientation Not on file Obstetrics History Last Filed Vital Signs Vital Sign Reading Time Taken Comments Blood Pressure 141/86 05/26/2022 8:10 AM RESPIRATORY MANAGER Pulse 81 05/26/2022 8:05 AM RESPIRATORY MANAGER Temperature 36.3 ??C (97.3 ??F) 05/21/2022 1 1:10 PM RESPIRATORY MANAGER Respiratory Rate 16 05/21/2022 11:1 0 PM RESPIRATORY MANAGER Oxygen Saturation 99% 05/26/2022 8:05 AM RESPIRATORY MANAGER Inhaled Oxygen Concentration - - Weight 106.8 kg (235 lb 6.4 oz) 05/26/2022 8:05 AM RESPIRATORY MANAGER Height 182.9 cm (6') 05/26/2022 8:05 AM RESPIRATORY MANAGER Body Mass Index 31.93 05/26/2022 8:05 AM RESPIRATORY MANAGER Plan of Treatment Health Maintenance Due Date Last Done Comments COVID-19 vaccine series (#1) 1988 Tdap 02/04/1999 HIV for age 15-65 02/04/2003 Hepatitis C screening for ag e 18-79 02/04/2006 Tetanus booster 2008 Influenza for age 9-49 02/02/2023 BMI (ht and wt on same day) for age 18+ 05/26/2023 05/26/2022 Depression screening for age 12+ 05/26/2023 05/26/20 22 Lipids for age 35-44 05/02/2027 05/02/2022 Pneumococcal series for age 6-64 Aged Out No longer eligible based on patient's age to complete this topic Advance Directives Latest Code Status on File Code Status Date Activated Date Inactivated Comments Full Code 05/01/2022 8:10 PM 05/02/2022 4:39 PM Question Answer Comments Code Status Discussion: Other presumed Care Teams Dressmaker Helper Relationship Specialty Start Date End Date Pcp, No . PCP - General 06/21/21
[2023-07-25 18:55] LABS: PCR FLU A Negative PCR FLU A (Negative); PCR FLU B Negative PCR FLU B (Negative); PCR RSV Negative PCR RSV (Negative); SARS PCR* Negative SARS-CoV-2 (Negative)
== END 2023-07-25 19:17 | disposition home or self-care (01) ==
PROVIDERS: Emergency Provider Family Medicine; PCP Internal Medicine
DX: J06.9 Acute upper respiratory infection, unspecified (principal)
CPT/HCPCS: 71045; 87631; 99283

== ENCOUNTER 2025-04-22 15:40 | Outpatient (CLI) | payer OTHER, SELFPAY | END 2025-04-22 15:41 | disposition home or self-care (01) | LOC: NFLDREF 15:42 | PROVIDERS: PCP Internal Medicine; Visit Provider Internal Medicine | DX: D64.9 Anemia, unspecified (principal) | CPT/HCPCS: 86900; 86901 ==